=== PATIENT | male | born 1980 | race American Indian/Alaskan Native ===

== ENCOUNTER 2016-07-27 13:30 | Emergency (ER) | payer OTHER ==
[2016-07-27 13:36] VITALS: BP 114/71
[2016-07-27] MEDS ORDERED: LIDOCAINE VISCOUS 2% PO ONE (14:20)
[2016-07-27] MEDS ORDERED: HYDROGEN PEROXIDE TP ONE (14:20)
--- NOTE | 2016-07-27 14:23 | Emergency Department Report ---
HPI - General Chief Complaint: Earache Time Seen by Provider: 07/27/16 14:19 - HPI HPI: 35-year-old male presents to ED complaining of right ear pressure intermittently for the past 6 months. Patient states it's becoming difficult to hear due to all of the pressure if it is in his right ear. She denies ear pain or trauma but states is his physical pressure in his ears, states he feels like his sinuses are clogged up Patient denies fevers/chills/nausea/vomiting/ear pain ED Past Medical Hx - Past Medical History Previous Medical History?: Yes Additional medical history: earache - Surgical History Past Surgical History?: No Additional Surgical History: left knee surgery - Social History Smoking Status: Current Every Day Smoker Substance Use Type: Alcohol, Marijuana - Medications Home Medications: Home Medications Medication Instructions Recorded Confirmed Last Taken Type Amoxicillin [Amoxicillin TAB] 875 mg PO BID #14 tablet 07/27/16 Unknown Rx Carbamide Peroxide 6.5% [Ear Wax 1 - 2 drops OT BID #1 bottle 07/27/16 Unknown Rx Drops] Ibuprofen [Motrin 800 MG tab] 800 mg PO TID PRN #12 tablet 07/27/16 Unknown Rx ED Review of Systems ROS: Stated complaint: STOPPED UP RIGHT EAR,CANNOT HEAR Other details as noted in HPI Constitutional: denies: chills, fever Eyes: denies: eye pain, eye discharge, vision change ENT: denies: ear pain, throat pain Respiratory: denies: cough, shortness of breath, wheezing Cardiovascular: denies: chest pain, palpitations Endocrine: no symptoms reported Gastrointestinal: denies: abdominal pain, nausea, vomiting, diarrhea Genitourinary: denies: urgency, dysuria, frequency, hematuria Musculoskeletal: denies: back pain, joint swelling, arthralgia Skin: denies: rash, lesions Neurological: denies: headache, weakness, paresthesias Psychiatric: denies: anxiety, depression Hematological/Lymphatic: denies: easy bleeding, easy bruising Physical Exam - Physical Exam Vital Signs: Vital Signs 07/27/16 13:32 Temperature 97.7 F Pulse Rate 68 Respiratory 18 Rate Blood Pressure 114/71 O2 Sat by Pulse 100 Oximetry Physical Exam: GENERAL: Alert and oriented x3, no apparent distress, Normal Gait, atraumatic. HEAD: Head is normocephalic and a-traumatic. EYES: Extra ocular muscles are intact. Pupils are equal, round, and reactive to light and accommodation. EARS: symetrical, atraumatic, non tender, ear canal filled with cerumen bilat , tympanic membrance not visualized. gross auditory nml bilaterally. NOSE: Nose symetrical, Nontender,Nares appeared normal. MOUTH:Mouth is well hydrated and without lesions. Tonsils nonerythematous or swollen, Uvula midline, Tongue not elevated. Mucous membranes are moist. Posterior pharynx clear, no exudate or lesions. Patent airways. NECK: Supple. Non edematous, No carotid bruits. No lymphadenopathy or thyromegaly. No C-spine tenderness LUNGS: Symetrical with respiration, No wheezing, no rales or crackles, CTAB. HEART: S1, S2 present, regular rate and rhythm without murmur, no rubs, no gallops. SKIN: Warm and dry, No lesions, No ulceration or induration present. ED Course Vital Signs 07/27/16 13:32 Temperature 97.7 F Pulse Rate 68 Respiratory 18 Rate Blood Pressure 114/71 O2 Sat by Pulse 100 Oximetry ED Medical Decision Making - Medical Decision Making 35-year-old male presents with bilateral cerumen impaction ED course: 5 mL of lidocaine with peroxide drops in bilateral ears Bilateral ears irrigated with about 200 mL of warm normal saline. Rao tolerated procedure well. Discussed the patient and will ask removal drops daily to prevent impaction Discussed with patient to avoid putting any foreign object in the ears. Vital signs normal patient is in no acute distress Discussed the patient to follow-up with primary care physician as referred. Critical care attestation.: If time is entered above; I have spent that time in minutes in the direct care of this critically ill patient, excluding procedure time. ED Disposition Clinical Impression: Cerumen impaction Qualifiers: Laterality: bilateral Qualified Code(s): H61.23 - Impacted cerumen, bilateral Disposition: DISCHARGED TO HOME OR SELFCARE Is pt being admited?: No Does the pt Need Aspirin: No Condition: Stable Instructions: Cerumen Impaction (ED) Prescriptions: Amoxicillin [Amoxicillin TAB] 875 mg PO BID #14 tablet Carbamide Peroxide 6.5% [Ear Wax Drops] 1 - 2 drops OT BID #1 bottle Ibuprofen [Motrin 800 MG tab] 800 mg PO TID PRN #12 tablet PRN Reason: Pain Referrals: PRIMARY CARE, [Primary Care Provider] - 3-5 Days [facility] [Outside] - 3-5 Days [facility] [Outside] - 3-5 Days [facility] [Outside] - 3-5 Days [facility] [Outside] - 3-5 Days ADWOA AGUILAR MD [Staff Physician] - 3-5 Days Forms: Work/School Release Form(ED)
== END 2016-07-27 17:22 | disposition home or self-care (01) ==
LOC: ED 13:30
DX: H61.23 Impacted cerumen, bilateral (principal); F17.200 Nicotine dependence, unspecified, uncomplicated; F12.10 Cannabis abuse, uncomplicated

== ENCOUNTER 2016-09-12 16:37 | Emergency (ER) | payer OTHER ==
[2016-09-12 16:53] VITALS: BP 132/95
== END 2016-09-12 18:31 | disposition left against medical advice (07) ==
LOC: ED 16:37
DX: M54.2 Cervicalgia (principal); Z53.21 Procedure and treatment not carried out due to patient leaving prior to being seen by health care provider

== ENCOUNTER 2018-06-22 11:57 | Emergency (ER) | payer OTHER ==
[2018-06-22 12:09] VITALS: BP 129/86
--- NOTE | 2018-06-22 12:16 | Emergency Department Report ---
ED ENT HPI - General Chief complaint: Dental/Oral Stated complaint: SWOLLEN FACE Time Seen by Provider: 06/22/18 12:11 Source: patient Mode of arrival: Ambulatory Limitations: No Limitations - History of Present Illness Initial comments: This is a 37-year-old male nontoxic well in appearance with no signs of distress presents to the ED with complaint of toothache. Patient denies any facial swelling. Denies following up with a dentist. Denies any fever, chills, headache, nausea, vomiting, chest pain or SOB. Denies any other complaints. Denies any allergies. MD complaint: tooth pain -: month(s) Location: tooth # 1 - pain here Severity: mild Severity scale (0 -10): 8 Quality: aching Consistency: constant Improves with: none Worsens with: none Context- Dental: history of dental caries, poor dental care Associated Symptoms: gum swelling, toothache. denies: fever, cough, pain with swallowing, sore throat, tinnitus, hearing loss, discharge from ear, rhinorrhea - Related Data Previous Rx's Medication Instructions Recorded Last Taken Type Amoxicillin [Amoxicillin TAB] 875 mg PO BID #14 tablet 07/27/16 Unknown Rx Carbamide Peroxide 6.5% [Ear Wax 1 - 2 drops OT BID #1 bottle 07/27/16 Unknown Rx Drops] Ibuprofen [Motrin 800 MG tab] 800 mg PO TID PRN #12 tablet 07/27/16 Unknown Rx Acetaminophen/Codeine [Tylenol 1 tab PO Q6H PRN #12 tab 06/22/18 Unknown Rx /Codeine # 3 tab] Amoxicillin [Amoxicillin TAB] 875 mg PO BID #20 tablet 06/22/18 Unknown Rx Chlorhexidine Mouthwash [Peridex] 15 ml MM BID #1 bottle 06/22/18 Unknown Rx Allergies Allergy/AdvReac Type Severity Reaction Status Date / Time No Known Allergies Allergy Verified 09/12/16 16:49 ED Dental HPI - General Chief complaint: Dental/Oral Stated complaint: SWOLLEN FACE Time Seen by Provider: 06/22/18 12:11 Source: patient Mode of arrival: Ambulatory Limitations: No Limitations - Related Data Previous Rx's Medication Instructions Recorded Last Taken Type Amoxicillin [Amoxicillin TAB] 875 mg PO BID #14 tablet 07/27/16 Unknown Rx Carbamide Peroxide 6.5% [Ear Wax 1 - 2 drops OT BID #1 bottle 07/27/16 Unknown Rx Drops] Ibuprofen [Motrin 800 MG tab] 800 mg PO TID PRN #12 tablet 07/27/16 Unknown Rx Acetaminophen/Codeine [Tylenol 1 tab PO Q6H PRN #12 tab 06/22/18 Unknown Rx /Codeine # 3 tab] Amoxicillin [Amoxicillin TAB] 875 mg PO BID #20 tablet 06/22/18 Unknown Rx Chlorhexidine Mouthwash [Peridex] 15 ml MM BID #1 bottle 06/22/18 Unknown Rx Allergies Allergy/AdvReac Type Severity Reaction Status Date / Time No Known Allergies Allergy Verified 09/12/16 16:49 ED Review of Systems ROS: Stated complaint: SWOLLEN FACE Other details as noted in HPI Constitutional: denies: chills, fever Eyes: denies: eye pain, eye discharge, vision change ENT: dental pain. denies: ear pain, throat pain Respiratory: denies: cough, shortness of breath, wheezing Cardiovascular: denies: chest pain, palpitations Endocrine: no symptoms reported Gastrointestinal: denies: abdominal pain, nausea, diarrhea Genitourinary: denies: urgency, dysuria Musculoskeletal: denies: back pain, joint swelling, arthralgia Skin: denies: rash, lesions Neurological: denies: headache, weakness, paresthesias Psychiatric: denies: anxiety, depression Hematological/Lymphatic: denies: easy bleeding, easy bruising ED Past Medical Hx - Past Medical History Previous Medical History?: No Additional medical history: earache - Surgical History Past Surgical History?: Yes Additional Surgical History: left knee surgery - Social History Smoking Status: Never Smoker Substance Use Type: None - Medications Home Medications: Home Medications Medication Instructions Recorded Confirmed Last Taken Type Amoxicillin [Amoxicillin TAB] 875 mg PO BID #14 tablet 07/27/16 Unknown Rx Carbamide Peroxide 6.5% [Ear Wax 1 - 2 drops OT BID #1 bottle 07/27/16 Unknown Rx Drops] Ibuprofen [Motrin 800 MG tab] 800 mg PO TID PRN #12 tablet 07/27/16 Unknown Rx Acetaminophen/Codeine [Tylenol 1 tab PO Q6H PRN #12 tab 06/22/18 Unknown Rx /Codeine # 3 tab] Amoxicillin [Amoxicillin TAB] 875 mg PO BID #20 tablet 06/22/18 Unknown Rx Chlorhexidine Mouthwash [Peridex] 15 ml MM BID #1 bottle 06/22/18 Unknown Rx ED Physical Exam - General Limitations: No Limitations General appearance: alert, in no apparent distress - Head Head exam: Present: atraumatic, normocephalic - Expanded ENT Exam Expanded Ear exam: Present: normal external inspection Mouth exam: Present: normal external inspection. Absent: drooling, trismus, muffled voice Teeth exam: Present: dental caries, fractured tooth #, dental tenderness #, gingival enlargement, other (no facial swelling. no abscess) Throat exam: Positive: normal inspection. Negative: tonsillar erythema, tonsillomegaly, tonsillar exudate, R peritonsillar mass, L peritonsillar mass - Neck Neck exam: Present: normal inspection, full ROM ED Course Vital Signs 06/22/18 12:08 Temperature 98.4 F Pulse Rate 77 Respiratory 16 Rate Blood Pressure 129/86 O2 Sat by Pulse 99 Oximetry - Reevaluation(s) Reevaluation #1: 06/22/18 12:14 Patient is speaking in full sentences with no signs of distress noted. ED Medical Decision Making - Medical Decision Making Patient was instructed to Follow-up with a dentist doctor in 3-5 days or if symptoms worsen and continue return to emergency room as soon as possible. At time of discharge, the patient does not seem toxic or ill in appearance. No acute signs of distress noted. Patient agrees to discharge treatment plan of care. No further questions noted by the patient. Critical care attestation.: If time is entered above; I have spent that time in minutes in the direct care of this critically ill patient, excluding procedure time. ED Disposition Clinical Impression: Dental caries, Gingivitis Disposition: - TO HOME OR SELFCARE Is pt being admited?: No Does the pt Need Aspirin: No Condition: Stable Instructions: Dental Caries (ED), Gingivitis (ED), Acetaminophen/Codeine (By mouth) Additional Instructions: Follow-up with a dentist doctor in 3-5 days or if symptoms worsen and continue return to emergency room as soon as possible. Prescriptions: Amoxicillin [Amoxicillin TAB] 875 mg PO BID #20 tablet Chlorhexidine Mouthwash [Peridex] 15 ml MM BID #1 bottle Acetaminophen/Codeine [Tylenol /Codeine # 3 tab] 1 tab PO Q6H PRN #12 tab PRN Reason: Pain , Severe (7-10) Referrals: PRIMARY CARE, [Referring] - 3-5 Days SINDHU AMAYA MD [Staff Physician] - 3-5 Days [facility] [Outside] - 3-5 Days Forms: Work/School Release Form(ED)
== END 2018-06-22 12:25 | disposition home or self-care (01) ==
LOC: ED 11:57
DX: K02.9 Dental caries, unspecified (principal); K05.00 Acute gingivitis, plaque induced; Z79.899 Other long term (current) drug therapy
CPT/HCPCS: 99282

== ENCOUNTER 2020-03-29 21:10 | Emergency (ER) | payer OTHER ==
[2020-03-29 21:37] VITALS: BP 134/99
[2020-03-29] MEDS ORDERED: IBUPROFEN 600 MG TAB PO ONE (21:50)
[2020-03-29] MEDS ORDERED: ONDANSETRON 4 MG ODT TAB PO ONE (21:50)
[2020-03-29] MEDS ORDERED: BUTALB/ACETAMINOPHEN/CAFFEINE TAB PO ONE (21:50)
[2020-03-29] MEDS ORDERED: AMOXICILLIN/K CLAV 875/125MG TAB PO ONE (21:50)
--- NOTE | 2020-03-29 21:57 | Emergency Department Report ---
ED Headache HPI - General Chief Complaint: Headache Stated Complaint: SEVERE MIGRAINES Source: patient Exam Limitations: no limitations - History of Present Illness Initial Comments: Patient is a 39-year-old -[place] male with a history of chronic recurrent sinus headaches presents to the ED with acute exacerbation of his chronic headaches characterized by persistent right retro-orbital and frontal sinus pressure and headache for the last 1 week, worse in the last 2 days. Patient states that he is unable to sleep because of worsening headache. Patient states that he has taken [id number] pain medications with no relief. Patient states that the headache is typical of his chronic sinus headaches which he has previously taken antibiotics and pain medication for unresolved. Patient denies dizziness, syncope, change in vision, nausea and vomiting, sore throat, cough, chest pain or shortness of breath, neck pain, seizures, fall or traumatic injury, fever and chills. Timing/Duration: 1 week Quality: severe, pressure, sharp Head Injury Location: frontal, other (Right retro-orbital headache) Recent Head Trauma: chronic headaches Modifying Factors: improves with: medication Associated Symptoms: denies symptoms. denies: confusion, fatigue, facial pain, fever/chills, flushing, loss of consciousness, nausea/vomiting, nasal congestion, nasal drainage, numbness in legs/feet, rash, seizures, sinus infection, stiff neck, vision changes, weakness Allergies/Adverse Reactions: Allergies No Known Allergies Allergy (Verified 09/12/16 16:49) Home Medications: Ambulatory Orders Amoxicillin [Amoxicillin TAB] 875 mg PO BID #14 tablet 07/27/16 Carbamide Peroxide 6.5% [Ear Wax Drops] 1 - 2 drops OT BID #1 bottle 07/27/16 Ibuprofen [Motrin 800 MG tab] 800 mg PO TID PRN #12 tablet 07/27/16 Acetaminophen/Codeine [Tylenol /Codeine # 3 tab] 1 tab PO Q6H PRN #12 tab 06/22/18 Amoxicillin [Amoxicillin TAB] 875 mg PO BID #20 tablet 06/22/18 Chlorhexidine Mouthwash [Peridex] 15 ml MM BID #1 bottle 06/22/18 Amoxicillin [Trimox CAP] 500 mg PO Q8H #30 capsule 03/29/20 Butalb/Acetamin/Caff 50-325-40 [Fioricet 50-325-40] 1 - 2 tab PO Q6HR PRN #12 tab 03/29/20 Ibuprofen [Motrin] 600 mg PO Q8H PRN #30 tablet 03/29/20 Ondansetron [Zofran Odt] 4 mg PO Q6HR PRN #15 tab.rapdis 03/29/20 ED Review of Systems ROS: Stated complaint: SEVERE MIGRAINES Other details as noted in HPI Constitutional: denies: chills, fever Eyes: denies: eye pain, eye discharge, vision change ENT: congestion, other (Frontal sinus pressure and headache). denies: ear pain, throat pain Respiratory: denies: cough, shortness of breath, wheezing Cardiovascular: denies: chest pain, palpitations Endocrine: no symptoms reported Gastrointestinal: denies: abdominal pain, nausea, vomiting, diarrhea, constipation, hematemesis, melena, hematochezia Genitourinary: denies: urgency, dysuria, frequency, hematuria, discharge, testicular pain, testicular mass Musculoskeletal: denies: back pain, joint swelling, arthralgia, myalgia Skin: denies: rash, lesions, change in color, change in hair/nails, pruritus Neurological: headache (Frontal sinus pressure and headache). denies: weakness, numbness, paresthesias, confusion, abnormal gait, vertigo Psychiatric: denies: anxiety, depression, auditory hallucinations, visual hallucinations, homicidal thoughts, suicidal thoughts Hematological/Lymphatic: denies: easy bleeding, easy bruising ED Past Medical Hx - Past Medical History Previous Medical History?: Yes Hx Headaches / Migraines: Yes Additional medical history: Sinusitis - Surgical History Past Surgical History?: Yes Additional Surgical History: left knee surgery. Left hip surgery. - Social History Smoking Status: Current Every Day Smoker Substance Use Type: None - Medications Home Medications: Home Medications Medication Instructions Recorded Confirmed Last Taken Type Amoxicillin [Amoxicillin TAB] 875 mg PO BID #14 tablet 07/27/16 Unknown Rx Carbamide Peroxide 6.5% [Ear Wax 1 - 2 drops OT BID #1 bottle 07/27/16 Unknown Rx Drops] Ibuprofen [Motrin 800 MG tab] 800 mg PO TID PRN #12 tablet 07/27/16 Unknown Rx Acetaminophen/Codeine [Tylenol 1 tab PO Q6H PRN #12 tab 06/22/18 Unknown Rx /Codeine # 3 tab] Amoxicillin [Amoxicillin TAB] 875 mg PO BID #20 tablet 06/22/18 Unknown Rx Chlorhexidine Mouthwash [Peridex] 15 ml MM BID #1 bottle 06/22/18 Unknown Rx Amoxicillin [Trimox CAP] 500 mg PO Q8H #30 capsule 03/29/20 Unknown Rx Butalb/Acetamin/Caff 50-325-40 1 - 2 tab PO Q6HR PRN #12 tab 03/29/20 Unknown Rx [Fioricet 50-325-40] Ibuprofen [Motrin] 600 mg PO Q8H PRN #30 tablet 03/29/20 Unknown Rx Ondansetron [Zofran Odt] 4 mg PO Q6HR PRN #15 tab.rapdis 03/29/20 Unknown Rx ED Physical Exam - General Limitations: No Limitations General appearance: alert, in no apparent distress - Head Head exam: Present: atraumatic, normocephalic, normal inspection - Eye Eye exam: Present: normal appearance, PERRL, EOMI - ENT ENT exam: Present: normal exam, normal orophraynx, mucous membranes moist, other (Palpable right retro-orbital and frontal sinus tenderness). Absent: TM's normal bilaterally, normal external ear exam - Neck Neck exam: Present: normal inspection, full ROM - Respiratory Respiratory exam: Present: normal lung sounds bilaterally. Absent: respiratory distress, wheezes, rales, rhonchi, chest wall tenderness - Cardiovascular Cardiovascular Exam: Present: regular rate, normal rhythm, normal heart sounds. Absent: systolic murmur, diastolic murmur, rubs, gallop - GI/Abdominal GI/Abdominal exam: Present: soft, normal bowel sounds. Absent: tenderness, guarding, rebound, hyperactive bowel sounds, hypoactive bowel sounds, organomegaly - Extremities Exam Extremities exam: Present: normal inspection, full ROM, normal capillary refill - Back Exam Back exam: Present: normal inspection, full ROM. Absent: tenderness, CVA tenderness (R), CVA tenderness (L), muscle spasm, paraspinal tenderness, vertebral tenderness - Neurological Exam Neurological exam: Present: alert, oriented X3, CN II-XII intact, normal gait, reflexes normal - Psychiatric Psychiatric exam: Present: normal affect, normal mood - Skin Skin exam: Present: warm, dry, intact, normal color. Absent: rash ED Course Vital Signs 03/29/20 21:32 Temperature 97.9 F Pulse Rate 86 Respiratory 20 Rate Blood Pressure 134/99 O2 Sat by Pulse 98 Oximetry ED Medical Decision Making - Medical Decision Making This is a 39-year-old -[place] male with a history of chronic recurrent sinus headaches presents to the ED with acute exacerbation of his chronic headaches characterized by persistent right retro-orbital and frontal sinus pressure and headache for the last 1 week, worse in the last 2 days. Patient states that he is unable to sleep because of worsening headache. Patient states that he has taken [id number] pain medications with no relief. Patient states that the headache is typical of his chronic sinus headaches which he has previously taken antibiotics and pain medication for unresolved. In the ED, patient is alert and oriented x3 and is not in any distress. Patient is hemodynamically stable. Patient however appears to be in pain during triage and during physical exam. On reevaluation, patient's pain is well controlled medications. Patient was discharged home on medications and advised to follow- up with his primary care physician in 7 to 10 days for reevaluation. Patient advised return to the ED immediately if symptoms get worse. - Differential Diagnosis Frontal sinusitis; sinus headache; chronic headache; migraine headache Critical care attestation.: If time is entered above; I have spent that time in minutes in the direct care of this critically ill patient, excluding procedure time. ED Disposition Clinical Impression: Acute recurrent frontal sinusitis, Sinus headache Chronic headaches Qualifiers: Headache type: unspecified Intractability: not intractable Qualified Code(s): R51.9 - Headache, unspecified; G89.29 - Other chronic pain Disposition: DC- TO HOME OR SELFCARE Is pt being admited?: No Does the pt Need Aspirin: No Condition: Stable Instructions: Sinusitis, Adult, [id number], Sinus Headache, [id number] Additional Instructions: Take medication with food, drink plenty of fluids and follow-up with your primary care physician in 5 to 7 days for reevaluation. Return to the ED immediately if symptoms get worse. Prescriptions: Butalb/Acetamin/Caff 50-325-40 [Fioricet 50-325-40] 1 - 2 tab PO Q6HR PRN #12 tab PRN Reason: Headache Ibuprofen [Motrin] 600 mg PO Q8H PRN #30 tablet PRN Reason: Pain Amoxicillin [Trimox CAP] 500 mg PO Q8H #30 capsule Ondansetron [Zofran Odt] 4 mg PO Q6HR PRN #15 tab.rapdis PRN Reason: Nausea Referrals: [facility] [Provider Group] - 3-5 Days Time of Disposition: 22:00 Print Language: MONGOLIAN
== END 2020-03-29 22:59 | disposition home or self-care (01) ==
LOC: ED 21:10
DX: J01.11 Acute recurrent frontal sinusitis (principal); G43.909 Migraine, unspecified, not intractable, without status migrainosus; F17.200 Nicotine dependence, unspecified, uncomplicated; Z79.899 Other long term (current) drug therapy
CPT/HCPCS: 99282; Q0162